=== PATIENT | female | born 1955 | race Caucasian/White ===

== ENCOUNTER 2024-09-07 20:42 | Inpatient (IN) | payer OTHER ==
[~2024-09-07] VITALS: Ht 162.6 cm; Wt 73.3 kg
[2024-09-07] MEDS: ALBUTEROL SULFATE 2.5 MG/ 0.5 ML NEBU NEB ONE (21:00)
[2024-09-07] MEDS ORDERED: LEVO25TA9 PO (21:07)
[2024-09-07] MEDS ORDERED: TRAM100T23 PO (21:07)
[2024-09-07] MEDS ORDERED: APIX5TAB PO (21:07)
[2024-09-07] MEDS ORDERED: DILT180T11 PO (21:07)
[2024-09-07] MEDS ORDERED: ATOR10TA PO (21:08)
[2024-09-07 21:20] LABS: BASOPHILS # (AUTO) 0.1 K/UL (0.0-0.2); BASOPHILS % (AUTO) 0.6 % (0.0-2.0); EOSINOPHILS # (AUTO) 0.6 K/uL (0.0-0.7); HEMATOCRIT 43.3 % (31.2-41.9); HEMOGLOBIN 14.1 g/dL (10.9-14.3); LYMPHOCYTES # (AUTO) 5.6 K/uL (0.8-4.8); LYMPHOCYTES % (AUTO) 26.4 % (20.5-51.5); MEAN CORPUSCULAR HEMOGLOBIN 29.8 uug (24.7-32.8); MEAN CORPUSCULAR HGB CONC 33 g/dL (32.3-35.6); MEAN CORPUSCULAR VOLUME 91.2 fL (75.5-95.3); MONOCYTES # (AUTO) 0.6 K/uL (0.1-1.30); NEUTROPHILS # (AUTO) 14.3 K/uL (1.8-8.9); PLATELET COUNT (AUTO) 389 K/uL (179-408); RED BLOOD CELL COUNT(AUTO) 4.75 MIL/uL (3.63-4.92); RED CELL DISTRIBUTION WIDTH 15.4 % (12.3-17.7); WHITE BLOOD COUNT (AUTO) 21.3 K/uL (3.8-11.8)
[2024-09-07 21:21] LABS: DIFFERENTIAL COMMENT 1
[2024-09-07 21:42] LABS: LACTIC ACID 2.3 mmol/L (0.4-2.0)
[2024-09-07 21:45] LABS: ALBUMIN 3.4 g/dL (3.4-5.0); BILIRUBIN,TOTAL 1.2 mg/dL (0.2-1.0); CALCIUM 9.3 mg/dL (8.5-10.1); CREATININE 1.1 mg/dL (0.6-1.3); POTASSIUM 3.1 mmol/L (3.5-5.1); TOTAL PROTEIN, SERUM 8.6 g/dL (6.4-8.2)
[2024-09-07] MEDS ORDERED: methylPREDNISolone SOD SUCC 125 MG/2 ML VIAL ONE (22:35)
[2024-09-07] MEDS ORDERED: INSULIN REGULAR, HUMAN 1000 UNIT/10 ML VIAL ONE (22:36)
[2024-09-07] MEDS ORDERED: levoFLOXacin 500 MG/D5W 100 ML ONE (22:37)
[2024-09-07 22:44] LABS: ABG BASE EXCESS -0.2 mmol/L (-2.0-3.0); ABG HCO3 24.9 mmol/L (21.0-28.0); ABG PCO2 42.3 mmHg (32.0-45.0); ABG PH 7.388 (7.350-7.450); ABG PO2 357.5 mmHg (83.0-108.0); ABG SITE RIGHT RADIAL; ABG TOTAL HEMOGLOBIN 13.9 G/dL (12.0-16.0); AaDO2 99.8 mmHg; COHb 0.9 % (0.5-1.5); MetHb 0.4 % (0.0-1.5); O2Hb 98.7 % (94.0-98.0)
[2024-09-07] MEDS: methylPREDNISolone SOD SUCC 125 MG/2 ML VIAL IV ONE (22:50)
[2024-09-07] MEDS: INSULIN REGULAR, HUMAN 1000 UNIT/10 ML VIAL IV ONE (22:57)
[2024-09-07] MEDS ORDERED: ALBUTEROL SULFATE 2.5 MG/ 0.5 ML NEBU ONE (22:57)
[2024-09-07] MEDS: levoFLOXacin 500 MG/D5W 100ML PIGGYBACK IV ONE (22:58)
[2024-09-08] VITALS (10 sets, daily range): BP systolic 122–168; BP diastolic 53–89; TEMP 97.5–98.2; O2SAT 91–99
[2024-09-08] MEDS ORDERED: ACETAMINOPHEN 650 MG SUPP.RECT RC PRN (00:15)
[2024-09-08] MEDS ORDERED: REMEDY ESSENTIAL ZINC PASTE 113 GM TP PRN (00:15)
[2024-09-08] MEDS ORDERED: ONDANSETRON 4 MG/2 ML VIAL IV PRN (00:15)
[2024-09-08] MEDS ORDERED: ALBUTEROL SULFATE 2.5 MG/3 ML NEBU NEB PRN (00:30)
[2024-09-08] MEDS: POTASSIUM CHLORIDE 50 ML IV SCH (02:52)
[2024-09-08] MEDS: methylPREDNISolone SOD SUCC 40 MG/ML VIAL IV SCH (05:21)
[2024-09-08] MEDS: CLONIDINE HCL 0.1 MG TABLET PO PRN (05:21)
[2024-09-08] MEDS ORDERED: DEXTROSE 50% 50 ML DISP.SYRIN IV PRN (05:30)
[2024-09-08] MEDS ORDERED: INSULIN REGULAR, HUMAN 1000 UNIT/10 ML VIAL SQ SCH ×2 (06:00)
[2024-09-08] MEDS ORDERED: BLOOD SUGAR DIAGNOSTIC 1 EACH STRIP VI SCH (06:00)
[2024-09-08] MEDS: BLOOD SUGAR DIAGNOSTIC 1 EACH STRIP VI SCH (06:34)
[2024-09-08 07:06] LABS: BASOPHILS % (AUTO) 0.2 % (0.0-2.0); HEMATOCRIT 39.4 % (31.2-41.9); HEMOGLOBIN 13.5 g/dL (10.9-14.3); LYMPHOCYTES # (AUTO) 0.2 K/uL (0.8-4.8); MEAN CORPUSCULAR HGB CONC 34 g/dL (32.3-35.6); MEAN CORPUSCULAR VOLUME 90.8 fL (75.5-95.3); MONOCYTES # (AUTO) 0.1 K/uL (0.1-1.30); MONOCYTES % (AUTO) 0.5 % (0.0-11.0); NEUTROPHILS # (AUTO) 11.1 K/uL (1.8-8.9); NEUTROPHILS % (AUTO) 97.3 % (38.5-71.5); PLATELET COUNT (AUTO) 280 K/uL (179-408); RED BLOOD CELL COUNT(AUTO) 4.34 MIL/uL (3.63-4.92); RED CELL DISTRIBUTION WIDTH 15.1 % (12.3-17.7); WHITE BLOOD COUNT (AUTO) 11.4 K/uL (3.8-11.8)
[2024-09-08 07:21] LABS: DIFFERENTIAL COMMENT 1
[2024-09-08 07:39] LABS: CALCIUM 9.3 mg/dL (8.5-10.1); CREATININE 1.2 mg/dL (0.6-1.3); MAGNESIUM 1.9 mg/dL (1.8-2.4); PHOSPHOROUS 3.7 mg/dL (2.5-4.9); POTASSIUM 3.5 mmol/L (3.5-5.1)
[2024-09-08] MEDS: PANTOPRAZOLE SODIUM 40 MG VIAL IV SCH (08:34)
[2024-09-08] MEDS: INSULIN REGULAR, HUMAN 1000 UNIT/10 ML VIAL SQ PRN (08:37)
[2024-09-08] MEDS: CLOTRIMAZOLE 1% CREAM 30 GM TUBE TOP SCH (17:37)
[2024-09-08 21:48] LABS: HIV-1 p24 ANTIGEN NON REACTIVE (NONREACTIVE); HIV-1/2 ANTIBODY NON REACTIVE (NONREACTIVE)
[2024-09-08] MEDS: levoFLOXacin 500 MG TABLET PO SCH (22:20)
[2024-09-08] MEDS ORDERED: levoFLOXacin 500 MG/D5W 500 MG in PREMIXED 1 EACH IV SCH (23:00)
[2024-09-08] MEDS ORDERED: LEVOFLOXACIN/D5W 250 MG in PREMIX 1 EA IV SCH (23:00)
[2024-09-09 00:37] VITALS: BP 121/73; TEMP 97.4; O2SAT 98
[2024-09-09 04:30] VITALS: BP 97/64; TEMP 97.7; O2SAT 97
[2024-09-09 06:04] LABS: ABG HCO3 27.4 mmol/L (21.0-28.0); ABG PCO2 37.6 mmHg (32.0-45.0); ABG PH 7.481 (7.350-7.450); ABG PO2 67.9 mmHg (83.0-108.0); ABG SITE RIGHT BRACHIAL; ABG TOTAL HEMOGLOBIN 15.8 G/dL (12.0-16.0); AaDO2 94.8 mmHg; COHb 0.6 % (0.5-1.5); MetHb 0.2 % (0.0-1.5)
[2024-09-09 07:03] LABS: BASOPHILS # (AUTO) 0.1 K/UL (0.0-0.2); BASOPHILS % (AUTO) 0.4 % (0.0-2.0); HEMATOCRIT 37.9 % (31.2-41.9); HEMOGLOBIN 12.9 g/dL (10.9-14.3); LYMPHOCYTES # (AUTO) 0.5 K/uL (0.8-4.8); MEAN CORPUSCULAR HGB CONC 34 g/dL (32.3-35.6); MONOCYTES # (AUTO) 0.4 K/uL (0.1-1.30); NEUTROPHILS # (AUTO) 16.8 K/uL (1.8-8.9); NEUTROPHILS % (AUTO) 94.6 % (38.5-71.5); PLATELET COUNT (AUTO) 280 K/uL (179-408); RED BLOOD CELL COUNT(AUTO) 4.31 MIL/uL (3.63-4.92); RED CELL DISTRIBUTION WIDTH 14.8 % (12.3-17.7); WHITE BLOOD COUNT (AUTO) 17.8 K/uL (3.8-11.8)
[2024-09-09 07:14] LABS: DIFFERENTIAL COMMENT 1
[2024-09-09 07:18] LABS: ALANINE AMINOTRANSFERASE 11 U/L (14-59); ALBUMIN 3.3 g/dL (3.4-5.0); ALKALINE PHOSPHATASE 117 U/L (50-136); ASPARTATE AMINOTRANSFERASE < 5 U/L (15-37); BILIRUBIN,DIRECT 0.2 mg/dL (0.0-0.2); BILIRUBIN,TOTAL 0.9 mg/dL (0.2-1.0); CALCIUM 9.5 mg/dL (8.5-10.1); CARBON DIOXIDE 28 mmol/L (21-32); CHLORIDE 99 mmol/L (98-107); CREATININE 1.1 mg/dL (0.6-1.3); GLUCOSE 251 mg/dL (74-106); SODIUM SERUM 136 mmol/L (136-145); TOTAL PROTEIN, SERUM 8.1 g/dL (6.4-8.2); UREA NITROGEN, BLOOD 16 mg/dL (7-18)
[2024-09-09 07:33] VITALS: BP 160/64; TEMP 97.7; O2SAT 98
[2024-09-09] MEDS: APIXABAN 5 MG TABLET PO SCH (08:17)
[2024-09-09 08:29] LABS: THYROID STIMULATING HORMONE 6.416 mIU/mL (0.358-3.740)
[2024-09-09 11:28] VITALS: BP 161/57; TEMP 98.2; O2SAT 96
[2024-09-09 16:00] VITALS: BP 132/68; TEMP 98.2; O2SAT 95
[2024-09-09] MEDS: methylPREDNISolone SOD SUCC 40 MG/ML VIAL IV SCH (17:58)
[2024-09-09 19:35] VITALS: BP 157/85; TEMP 97.8; O2SAT 96
[2024-09-09] MEDS: ATORVASTATIN 20 MG TABLET PO SCH (20:55)
[2024-09-10] VITALS: BP 159/93; TEMP 97.5; O2SAT 96
[2024-09-10 04:00] VITALS: BP 170/88; TEMP 98.1; O2SAT 99
[2024-09-10] MEDS: LEVOTHYROXINE SODIUM 25 MCG TABLET PO SCH (06:55)
[2024-09-10] MEDS: PANTOPRAZOLE SODIUM 40 MG TABLET.DR PO SCH (06:55)
[2024-09-10] MEDS: glipiZIDE 5 MG TABLET PO SCH (06:55)
[2024-09-10 07:32] VITALS: BP 131/77; TEMP 97.4; O2SAT 100
[2024-09-10 07:40] LABS: BASOPHILS % (AUTO) 0.1 % (0.0-2.0); HEMATOCRIT 34.3 % (31.2-41.9); HEMOGLOBIN 11.9 g/dL (10.9-14.3); LYMPHOCYTES # (AUTO) 0.9 K/uL (0.8-4.8); LYMPHOCYTES % (AUTO) 5.6 % (20.5-51.5); MEAN CORPUSCULAR HEMOGLOBIN 30.5 uug (24.7-32.8); MEAN CORPUSCULAR HGB CONC 35 g/dL (32.3-35.6); MEAN CORPUSCULAR VOLUME 87.8 fL (75.5-95.3); MONOCYTES # (AUTO) 0.7 K/uL (0.1-1.30); MONOCYTES % (AUTO) 4.2 % (0.0-11.0); NEUTROPHILS # (AUTO) 14.2 K/uL (1.8-8.9); NEUTROPHILS % (AUTO) 90.1 % (38.5-71.5); PLATELET COUNT (AUTO) 262 K/uL (179-408); RED BLOOD CELL COUNT(AUTO) 3.91 MIL/uL (3.63-4.92); RED CELL DISTRIBUTION WIDTH 14.7 % (12.3-17.7); WHITE BLOOD COUNT (AUTO) 15.8 K/uL (3.8-11.8)
[2024-09-10 08:07] LABS: CREATININE 1.2 mg/dL (0.6-1.3); PHOSPHOROUS 3.8 mg/dL (2.5-4.9); POTASSIUM 3.9 mmol/L (3.5-5.1)
[2024-09-10] MEDS: METFORMIN HCL 500 MG TABLET PO SCH (08:09)
[2024-09-10 08:11] LABS: DIFFERENTIAL COMMENT 1
[2024-09-10 08:25] LABS: MAGNESIUM 2.1 mg/dL (1.8-2.4)
[2024-09-10 09:09] LABS: HEPATITIS B SURFACE AG Negative (Negative); HEPATITIS C VIRUS ANTIBODY Non Reactive (Non Reactive)
[2024-09-10 10:11] LABS: HEPATITIS B CORE AB, TOTAL Negative (Negative)
[2024-09-10 11:44] VITALS: BP 133/63; TEMP 97.8; O2SAT 98
[2024-09-10 16:00] VITALS: BP 112/79; TEMP 97.8; O2SAT 98
[2024-09-10 21:19] VITALS: BP 139/73; TEMP 97.5; O2SAT 96
[2024-09-11] VITALS (7 sets, daily range): BP systolic 141–161; BP diastolic 68–84; TEMP 97.1–98.4; O2SAT 95–100
[2024-09-11 06:57] LABS: BASOPHILS % (AUTO) 0.1 % (0.0-2.0); EOSINOPHILS % (AUTO) 0.1 % (0.0-7.0); HEMATOCRIT 36.9 % (31.2-41.9); HEMOGLOBIN 12.9 g/dL (10.9-14.3); LYMPHOCYTES # (AUTO) 1.2 K/uL (0.8-4.8); LYMPHOCYTES % (AUTO) 9.2 % (20.5-51.5); MEAN CORPUSCULAR HEMOGLOBIN 30.5 uug (24.7-32.8); MEAN CORPUSCULAR HGB CONC 35 g/dL (32.3-35.6); MEAN CORPUSCULAR VOLUME 87.1 fL (75.5-95.3); MONOCYTES # (AUTO) 0.7 K/uL (0.1-1.30); MONOCYTES % (AUTO) 5.5 % (0.0-11.0); NEUTROPHILS % (AUTO) 85.1 % (38.5-71.5); PLATELET COUNT (AUTO) 280 K/uL (179-408); RED BLOOD CELL COUNT(AUTO) 4.23 MIL/uL (3.63-4.92); RED CELL DISTRIBUTION WIDTH 14.7 % (12.3-17.7)
[2024-09-11 07:07] LABS: CALCIUM 9.6 mg/dL (8.5-10.1); CREATININE 1.4 mg/dL (0.6-1.3); POTASSIUM 4.1 mmol/L (3.5-5.1)
[2024-09-11 07:14] LABS: DIFFERENTIAL COMMENT 1
[2024-09-12] VITALS (8 sets, daily range): BP systolic 122–173; BP diastolic 53–90; TEMP 96.1–98.4; O2SAT 96–100
[2024-09-12] MEDS: methylPREDNISolone SOD SUCC 40 MG/ML VIAL IV SCH (09:49)
[2024-09-12 23:10] LABS: *BILIRUBIN,URIN NEGATIVE (NEGATIVE); *BLOOD, URINE NEGATIVE (NEGATIVE); *CLARITY,URINE CLEAR (CLEAR); *COLOR,URINE YELLOW (YELLOW); *KETONES,URINE NEGATIVE (NEGATIVE); *PROTEIN,URINE NEGATIVE (NEGATIVE); *UROBILINOGEN,URINE 0.2 E.U./dl (NORMAL); LEUKOCYTE ESTERASE ,URINE NEGATIVE (NEGATIVE); NITRITE, URINE NEGATIVE (NEGATIVE); PH,URINE 5.5 (5.0-8.0); UGLUCOSE TRACE (NEGATIVE)
[2024-09-12 23:20] LABS: *CREATININE,URINE 74.2 mg/dL (30-125); *URINE TOTAL PROTEIN RANDOM 14.3 mg/dL (<150/24HR)
[2024-09-12 23:31] LABS: BACTERIA,URINE FEW /HPF (NONE SEEN); RBC,URINE 0-3 /HPF (0-3); WBC,URINE 0-3 /HPF (0-3)
[2024-09-12 23:32] LABS: SQUAMOUS EPITHELIAL CELL,UR FEW /HPF (NONE SEEN); TRIPLE PHOSPHATE CRYSTAL,UR MODERATE /HPF (NONE SEEN)
[2024-09-12 23:33] LABS: MUCUS,URINE FEW /LPF (0-FEW)
[2024-09-13 00:20] VITALS: BP 172/86; TEMP 96.8; O2SAT 96
[2024-09-13 06:22] VITALS: BP 135/63; TEMP 97.7; O2SAT 98
[2024-09-13 07:00] LABS: BASOPHILS % (AUTO) 0.1 % (0.0-2.0); EOSINOPHILS # (AUTO) 0.1 K/uL (0.0-0.7); EOSINOPHILS % (AUTO) 0.8 % (0.0-7.0); HEMATOCRIT 41.9 % (31.2-41.9); HEMOGLOBIN 14.6 g/dL (10.9-14.3); LYMPHOCYTES # (AUTO) 1.3 K/uL (0.8-4.8); MEAN CORPUSCULAR HEMOGLOBIN 30.7 uug (24.7-32.8); MEAN CORPUSCULAR HGB CONC 35 g/dL (32.3-35.6); MONOCYTES # (AUTO) 0.8 K/uL (0.1-1.30); MONOCYTES % (AUTO) 5.6 % (0.0-11.0); NEUTROPHILS # (AUTO) 12.4 K/uL (1.8-8.9); NEUTROPHILS % (AUTO) 84.5 % (38.5-71.5); PLATELET COUNT (AUTO) 321 K/uL (179-408); RED BLOOD CELL COUNT(AUTO) 4.77 MIL/uL (3.63-4.92); RED CELL DISTRIBUTION WIDTH 15.2 % (12.3-17.7); WHITE BLOOD COUNT (AUTO) 14.6 K/uL (3.8-11.8)
[2024-09-13 07:16] LABS: DIFFERENTIAL COMMENT 1
[2024-09-13 07:17] LABS: ALBUMIN 3.6 g/dL (3.4-5.0); BILIRUBIN,DIRECT 0.1 mg/dL (0.0-0.2); BILIRUBIN,TOTAL 0.7 mg/dL (0.2-1.0); CALCIUM 9.8 mg/dL (8.5-10.1); CREATININE 1.2 mg/dL (0.6-1.3); MAGNESIUM 2.3 mg/dL (1.8-2.4); PHOSPHOROUS 3.1 mg/dL (2.5-4.9); TOTAL PROTEIN, SERUM 8.5 g/dL (6.4-8.2)
[2024-09-13 07:31] VITALS: BP 125/64; TEMP 97.6; O2SAT 94
[2024-09-13 08:00] VITALS: BP 125/64; TEMP 98.4; O2SAT 94
[2024-09-13 11:03] VITALS: BP 151/65; TEMP 98.6; O2SAT 97
[2024-09-13] MEDS ORDERED: PANT40TA49 PO (11:38)
[2024-09-13] MEDS ORDERED: GLIP5TAB13 PO (11:38)
[2024-09-13] MEDS ORDERED: ATOR20TA PO (11:38)
[2024-09-13] MEDS ORDERED: LEVO25TA9 PO (11:38)
[2024-09-13] MEDS ORDERED: APIX5TAB PO (11:38)
[2024-09-13] MEDS ORDERED: METF-440 PO (11:38)
[2024-09-13] MEDS ORDERED: LEVO500T90 PO (11:38)
[2024-09-13] MEDS ORDERED: CLON0.1T PO (11:38)
[2024-09-14 08:06] LABS: PTH, INTACT 33 pg/mL (15-65)
[2024-09-15 08:06] LABS: ALBUMIN 3.8 g/dL (2.9-4.4); ALPHA-1-GLOBULIN 0.2 g/dL (0.0-0.4); BETA GLOBULIN 1.2 g/dL (0.7-1.3); GAMMA GLOBULIN 1.6 g/dL (0.4-1.8); M-SPIKE Not Observed g/dL (Not Observed); PROTEIN, TOTAL 7.8 g/dL (6.0-8.5)
[2024-09-15 19:08] LABS: ADENOVIRUS Not Detected (Not Detected); CORONAVIRUS 229E Not Detected (Not Detected); CORONAVIRUS HKU1 Not Detected (Not Detected); CORONAVIRUS NL63 Not Detected (Not Detected); CORONAVIRUS OC43 Not Detected (Not Detected); NP BORDETELLA PERTUSIS Not Detected (Not Detected); NP CHLAMYDOPHILA PNEUMONIAE Not Detected (Not Detected); NP HUMAN METAPNEUMOVIRUS Not Detected (Not Detected); NP HUMAN RHINO/ENTERO VIRUS Not Detected (Not Detected); NP INFLUENZA A Not Detected (Not Detected); NP INFLUENZA A/H1 Not Detected (Not Detected); NP INFLUENZA A/H1-2009 Not Detected (Not Detected); NP INFLUENZA A/H3 Not Detected (Not Detected); NP INFLUENZA B Not Detected (Not Detected); NP MYCOPLASMA PNEUMONIAE Not Detected (Not Detected); NP PARAINFLUENZA 1 Not Detected (Not Detected); NP PARAINFLUENZA 2 Not Detected (Not Detected); NP PARAINFLUENZA 3 Not Detected (Not Detected); NP PARAINFLUENZA 4 Not Detected (Not Detected); NP RESPIRATORY SYNCYTIAL VIRUS Not Detected (Not Detected)
== END 2024-09-13 14:45 | disposition home or self-care (01) | DRG 871 ==
LOC: ER 20:42 → TELE-TD3 09-08 00:11 → TELE3 09-08 11:59
PROVIDERS: ADMIT Nurse Practitioner Family; ATTEND Internal Medicine
PROC: 5A09357 Assistance with Respiratory Ventilation, Less than 24 Consecutive Hours, Continuous Positive Airway Pressure (ICD-10-PCS; principal; 2024-09-08)
DX: A41.9 Sepsis, unspecified organism (principal); I21.A1 Myocardial infarction type 2; I50.31 Acute diastolic (congestive) heart failure; J18.9 Pneumonia, unspecified organism; J96.01 Acute respiratory failure with hypoxia; J44.0 Chronic obstructive pulmonary disease with (acute) lower respiratory infection; J44.1 Chronic obstructive pulmonary disease with (acute) exacerbation; D68.59 Other primary thrombophilia; I87.331 Chronic venous hypertension (idiopathic) with ulcer and inflammation of right lower extremity; L97.811 Non-pressure chronic ulcer of other part of right lower leg limited to breakdown of skin; N17.9 Acute kidney failure, unspecified; Z74.09 Other reduced mobility; M15.9 Polyosteoarthritis, unspecified; E66.9 Obesity, unspecified; Z68.27 Body mass index [BMI] 27.0-27.9, adult; Z87.891 Personal history of nicotine dependence; E11.65 Type 2 diabetes mellitus with hyperglycemia; R65.20 Severe sepsis without septic shock; Z85.820 Personal history of malignant melanoma of skin; Z92.21 Personal history of antineoplastic chemotherapy; Z85.118 Personal history of other malignant neoplasm of bronchus and lung; Z88.0 Allergy status to penicillin; I11.0 Hypertensive heart disease with heart failure; J31.0 Chronic rhinitis; E03.9 Hypothyroidism, unspecified; I25.10 Atherosclerotic heart disease of native coronary artery without angina pectoris; I48.91 Unspecified atrial fibrillation; E78.5 Hyperlipidemia, unspecified; I89.0 Lymphedema, not elsewhere classified; E11.42 Type 2 diabetes mellitus with diabetic polyneuropathy; F10.21 Alcohol dependence, in remission; I34.81 Nonrheumatic mitral (valve) annulus calcification; Z79.01 Long term (current) use of anticoagulants; Z79.890 Hormone replacement therapy; Z90.49 Acquired absence of other specified parts of digestive tract
CPT/HCPCS: 36415; 36600; 71045; 82803; 83605; 83735; 83970; 84100; 84155; 84165; 84300; 84443; 84484; 85025; 86704; 86803; 87040; 87340; 87806; 93005; 93307; 94660; A4606; A4663; G0378; J1815; J1956; J2470; J2919; J3480